=== PATIENT | male | born 1975 | race Caucasian/White ===

== ENCOUNTER → 2016-12-04 | Outpatient (CLI) | payer MEDICAID ==
--- NOTE | 2016-12-04 12:28 | XR ---
EXAMINATION TYPE: XR wrist complete LT DATE OF EXAM: 12/04/2016 COMPARISON: NONE HISTORY: Pain TECHNIQUE: Four views submitted. FINDINGS: The osseous structures are intact. The joint spaces are preserved and there is no acute fracture or dislocation. Corticated density along the base of the fifth metacarpal suggest remote trauma. IMPRESSION: 1. No definite acute fracture or dislocation if symptoms persist, follow-up study in 7 to 10 days wo uld be suggested
== END ==
LOC: RADXRMAIN 12:05
PROVIDERS: ATTEND Family Medicine
DX: M25.532 Pain in left wrist (principal)

== ENCOUNTER → 2016-12-19 | Outpatient (CLI) | payer MEDICAID ==
--- NOTE | 2016-12-19 23:15 | MR ---
EXAMINATION TYPE: MR wrist LT wo con DATE OF EXAM: 12/19/2016 COMPARISON: NONE HISTORY: Pain in left wrist Standard multiplanar, multisequence MRI departmental protocol Multiplanar, multisequence images of the left wrist were acquired. FINDINGS: There is a 5 mm cystic fluid collection lateral to the scaphoid bone. The flexor and extens or tendons of the wrist appear intact. The carpal bones are intact. There is no evidence of a fractur e line. Proximal metacarpals are intact. Triangular cartilage appears intact. There is mild increased signal on the T2 images involving the distal radial metaphysis on the lateral aspect. IMPRESSION: There is evidence of some edema in the distal radius consistent with bone bruise. No fracture line se en. Small cystic fluid collection consistent with synovial cyst or ganglion cyst lateral to the radio carpal joint.
== END | disposition home or self-care (01) ==
LOC: RADMRIMAIN 19:46
PROVIDERS: ATTEND Family Medicine
DX: M25.432 Effusion, left wrist (principal)

== ENCOUNTER → 2017-07-23 | Outpatient (CLI) | payer MEDICAID ==
[2017-07-23 14:40] LABS: T4, Free (Free Thyroxine) 1.09 ng/dL (0.78-2.19)
== END | disposition home or self-care (01) ==
LOC: LABWHC1 11:39
PROVIDERS: ATTEND Family Medicine
DX: Z00.00 Encounter for general adult medical examination without abnormal findings (principal); M65.839 Other synovitis and tenosynovitis, unspecified forearm
CPT/HCPCS: 36415; 80061; 82947; 84439; 84443

== ENCOUNTER → 2019-01-21 | Outpatient (CLI) | payer OTHER ==
--- NOTE | 2019-01-21 14:31 | ECHOF ---
Referral Reason:Bradycardia R00.1 MEASUREMENTS -------- HEIGHT: 177.8 cm WEIGHT: 81.6 kg BP: 136/51 RVIDd: 3.0 cm (< 3.3) IVSd: 1.3 cm (0.6 - 1.1) LVIDd: 3.9 cm (3.9 - 5.3) LVPWd: 1.3 cm (0.6 - 1.1) IVSs: 2.0 cm LVIDs: 3.0 cm LVPWs: 1.7 cm LA Diam: 3.9 cm (2.7 - 3.8) LAESV Index (A-L): 27.00 ml/m Ao Diam: 2.6 cm (2.0 - 3.7) AV Cusp: 1.9 cm (1.5 - 2.6) MV EXCURSION: 19.783 mm (> 18.000) MV EF SLOPE: 120 mm/s (70 - 150) EPSS: 1.1 cm MV E Madan: 1.26 m/s MV DecT: 198 ms MV A Madan: 0.59 m/s MV E/A Ratio: 2.15 RAP: 5.00 mmHg RVSP: 30.01 mmHg TAPSE: 28.44 mm FINDINGS -------- Sinus rhythm. This was a technically good study. The left ventricular size is normal. There is mild concentric left ventricular hypertrophy. Overa ll left ventricular systolic function is normal with, an EF between 60 - 65 %. The diastolic fillin g pattern is normal for the age of the patient 10.12. The right ventricle is normal in size. Normal LA size by volume 22+/-6 ml/m2. The right atrium is normal in size. Interatrial and interventricular septum intact. The aortic valve is trileaflet and appears structurally normal. The mitral valve is normal. Mild tricuspid regurgitation present. Right ventricular systolic pressure is normal at < 35 mmHg. The aortic root size is normal. Normal inferior vena cava with normal inspiratory collapse consistent with estimated right atrial pre ssure of 5 mmHg. There is no pericardial effusion. CONCLUSIONS -------- 1. Sinus rhythm. 2. This was a technically good study. 3. The left ventricular size is normal. 4. There is mild concentric left ventricular hypertrophy. 5. Overall left ventricular systolic function is normal with, an EF between 60 - 65 %. 6. The diastolic filling pattern is normal for the age of the patient 10.12 7. The right ventricle is normal in size. 8. Normal LA size by volume 22+/-6 ml/m2. 9. The right atrium is normal in size. 10. Interatrial and interventricular septum intact. 11. The aortic valve is trileaflet and appears structurally normal. 12. The mitral valve is normal. 13. Mild tricuspid regurgitation present. 14. Right ventricular systolic pressure is normal at < 35 mmHg. 15. The aortic root size is normal. 16. Normal inferior vena cava with normal inspiratory collapse consistent with estimated right atrial pressure of 5 mmHg. 17. There is no pericardial effusion. DIGITAL ADVERTISING SPECIALIST: Damaris Dc RDCS
--- NOTE | 2019-01-21 15:04 | EST ---
EXERCISE STRESS AGE: 43 SEX: M HT: 70" WT: 180 PROTOCOL: Tab Stress Test STAGE: 5 DURATION OF EXERCISE: 13:15 HEART RATE REST: 47 BLOOD PRESSURE REST: 128/70 MAXIMUM HEART RATE ACHIEVED: 151 MAXIMUM BLOOD PRESSURE: 179/63 85% MPHR: 151 100% MPHR: 178 METS: 13.7 INDICATIONS: Bradycardia CLINICAL INFORMATION: Baseline EKG revealed normal sinus rhythm without significant ST changes. Patient walked for 13 minutes 15 seconds on standard Tab protocol. Achieved a maximal heart rate of 151 beats per minute. Developed fatigue, shortness of breath but did not have any angina or arrhythmia. EKG did not reveal any ST-segment changes to indicate ischemia. By EKG criteria, this is a negative stress test with excellent exercise capacity. MMODL / IJN: [id number] /
== END | disposition home or self-care (01) ==
LOC: RADNMMAIN 08:33
PROVIDERS: ATTEND Family Medicine
DX: I07.1 Rheumatic tricuspid insufficiency (principal); R00.1 Bradycardia, unspecified
CPT/HCPCS: 93017; 93306

== ENCOUNTER → 2019-05-05 | Outpatient (CLI) | payer BC ==
--- NOTE | 2019-05-06 03:24 | CONS ---
CONSULTATION REASON FOR EVALUATION: Sleep apnea. 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 He is having issues with bradycardia. This is a long lasting problem that the patient has had for many years. However, recently has become symptomatic and Holter monitor was done by Dr. Sanchez showed that the patient's heart rate was as low as 22 beats per minute at night time and he has 4 second pause and for that reason he was referred to me. I note that the patient was evaluated at the [facility] back in 2008 and at that time he was given the diagnosis of mild obstructive sleep apnea. I had the chance to review the sleep study. The patient back then showed 31 central apneas, 14 obstructive hypopneas, 20 obstructive apneas, and his overall apnea-hypopnea index was 4.8. He was given CPAP therapy at the pressure of 7 cm of water. I also noted that the patient's heart rate on average during sleep was 53, minimum heart rate was 49, maximum heart rate was 91. He used the CPAP machine at the pressure of 7 cm of water for 1-1/2 years. Following that, the patient lost a considerable amount of weight and he ended up quitting the treatment. He was sent over by a his motion picture photographer for reevaluation. He is not snoring. He is not having any major hypersomnia or sleepiness during the day. He is going to bed around 2100 and waking up at 0430 am. Averaging around 7-8 hours of sleep per night. No syncope. PAST MEDICAL HISTORY: Chronic sinus bradycardia. SURGICAL HISTORY: Includes right knee meniscal repair and right ankle ligament repair with removal of a bone chip. DRUG ALLERGIES: None. SOCIAL HISTORY: Ex-smoker. No history of alcohol. No history of IV drugs. FAMILY HISTORY: Positive for COPD in the father. Mother is alive with multiple medical problems. Father of complications of COPD. REVIEW OF SYSTEMS: Fourteen-point review of system was done. Negative other than as mentioned above in history of present illness. He has no excessive tiredness or sleepiness. He has not been told to quit breathing recently. No choking or gasping for air. No nocturia. No grinding of the teeth. No sleepwalking. No dry mouth. No anxiety or panic attacks. No heartburn. No sweating. No anxiety. No claustrophobia. No depression. PHYSICAL EXAMINATION: BP is 131/70, pulse 48, respirations 12 temperature 98.1, saturation is 98% on room air. Height is 5 feet 9 inches, weight is 178. [place] score is 11. BMI is 25.7. GENERAL: Appears calm, comfortable. HEAD: Atraumatic, normocephalic. NECK: Enlarged uvula. He has Mallampati class IV. There is no goiter or neck mass. LUNGS: Clear to auscultation. HEART: Heart sounds are regular rate and rhythm. Normal S1, S2. No S3, S4. No murmurs. ABDOMEN: Soft, nontender. No organomegaly. EXTREMITIES: No edema, cyanosis or clubbing. IMPRESSION: Sinus bradycardia with nocturnal drop in the heart rate down to 22 beats per minutes. Very unlikely to be related to obstructive sleep apnea knowing that the patient is having sinus bradycardia even when he is awake. I reviewed his old sleep study from 2008 and back then the patient had an AHI of 4.8. He was treated with CPAP. He quit the treatment after he lost significant amount of weight. His current BMI is 25.7. No snoring. No witnessed apneas. PLAN: I am going to repeat the home sleep study. I noted that the patient's original sleep study that was done in 2003 showed mixed obstructive and central events yet overall apnea-hypopnea index was 4.8. Obtain a home sleep study to rule out any possibility of significant sleep breathing disorder and decide if treatment is needed. Very unlikely that his bradycardia is related to sleep breathing disorder based on the reported information. RENAY / IJN: [id number] /
== END | disposition home or self-care (01) ==
LOC: SLEEP 15:38
PROVIDERS: ATTEND Internal Medicine Critical Care Medicine
DX: R00.1 Bradycardia, unspecified (principal); Z87.891 Personal history of nicotine dependence; Z83.6 Family history of other diseases of the respiratory system
CPT/HCPCS: 99211

== ENCOUNTER → 2019-08-31 | Outpatient (CLI) | payer BC ==
[2019-08-31 12:13] LABS: Appearance,Urine Clear (Clear); Bilirubin,Urine Negative (Negative); Blood,Urine Negative (Negative); Color,Urine Light Yellow; Glucose,Urine (UA) Negative (Negative); Ketones,Urine Negative (Negative); Leukocyte Esterase,Urine Negative (Negative); Nitrite,Urine Negative (Negative); Protein,Urine Negative (Negative); Specific Gravity,Urine 1.006 (1.001-1.035); Urobilinogen,Urine <2.0 mg/dL (<2.0)
[2019-08-31 12:21] LABS: Basophils % (A) 0 %; Eosinophils # (A) 0.1 k/uL (0-0.7); Eosinophils % (A) 1 %; HCT 44.2 % (39.0-53.0); HGB 14.5 gm/dL (13.0-17.5); Lymphocytes # (A) 1.8 k/uL (1.0-4.8); Lymphocytes % (A) 22 %; MCH 32.2 pg (25.0-35.0); MCHC 32.8 g/dL (31.0-37.0); MCV 98.4 fL (80.0-100.0); Mean Platelet Volume 7.3; Monocytes # (A) 0.4 k/uL (0-1.0); Monocytes % (A) 4 %; Neutrophils # (A) 5.9 k/uL (1.3-7.7); Neutrophils % (A) 71 %; Platelet Count 342 k/uL (150-450); RBC 4.49 m/uL (4.30-5.90); RDW 12.7 % (11.5-15.5); WBC 8.3 k/uL (3.8-10.6)
[2019-08-31 20:37] LABS: African American GFR (CKD) 142.7 (60.0-200.0); Albumin 4.6 g/dL (3.80-4.90); Anion Gap 8.6 mmol/L (4.00-12.00); BUN/Creat Ratio 26.67 Ratio (12.00-20.00); Carbon Dioxide 27.4 mmol/L (21.6-31.8); Globulin 2.3 g/dL (1.6-3.3); Non-African American GFR(CKD) 123.1 (60.0-200.0); Potassium 4.5 mmol/L (3.5-5.5); Total Bilirubin 0.6 mg/dL (0.2-1.2); Total Protein 6.9 g/dL (6.2-8.2)
== END | disposition home or self-care (01) ==
LOC: LABWHC1 10:37
PROVIDERS: ATTEND Nurse Practitioner Family
DX: R10.32 Left lower quadrant pain (principal); R10.2 Pelvic and perineal pain
CPT/HCPCS: 36415; 80053; 81003; 82150; 83690; 84153; 85025

== ENCOUNTER → 2019-10-01 | Outpatient (CLI) | payer BC ==
--- NOTE | 2019-10-02 08:35 | US ---
EXAMINATION TYPE: US abdomen complete DATE OF EXAM: 10/01/2019 COMPARISON: NONE CLINICAL HISTORY: R10.9 unspecified abdominal pain. General abd pain EXAM MEASUREMENTS: Liver Length: 14.0 cm Gallbladder Wall: 0.2 cm CBD: 0.3 cm Spleen: 12.2 cm Right Kidney: 12.3 x 6.1 x 4.2 cm Left Kidney: 14.0 x 5.4 x 4.9 cm Pancreas: wnl Liver: wnl Gallbladder: wnl Evidence for sonographic Brooks's sign: no CBD: wnl Spleen: wnl Right Kidney: wnl Left Kidney: wnl Upper IVC: wnl Abd Aorta: wnl IMPRESSION: 1. Normal abdomen
== END | disposition home or self-care (01) ==
LOC: RADUSWWP 16:05
PROVIDERS: ATTEND Family Medicine
DX: R10.9 Unspecified abdominal pain (principal)
CPT/HCPCS: 76700

== ENCOUNTER → 2019-11-05 | Outpatient (CLI) | payer BC ==
--- NOTE | 2019-11-05 13:26 | US ---
EXAMINATION TYPE: US venous doppler duplex LE DATE OF EXAM: 11/05/2019 1:11 PM COMPARISON: NONE CLINICAL HISTORY: M79.604 pain right leg, M79.605 pain left leg. Bilateral leg pain SIDE PERFORMED: Bilateral TECHNIQUE: The lower extremity deep venous system is examined utilizing real time linear array sonog brittany with graded compression, doppler sonography and color-flow sonography. VESSELS IMAGED: External Iliac Vein (EIV) Common Femoral Vein Deep Femoral Vein Greater Saphenous Vein * Femoral Vein Popliteal Vein Small Saphenous Vein * Proximal Calf Veins (* superficial vessels) Right Leg: Appears negative for DVT Left Leg: Appears negative for DVT IMPRESSION: Grayscale, color doppler, spectral doppler imaging performed of the deep veins of the lo wer extremities. There is normal flow, compressibility, vascular waveforms.
== END | disposition home or self-care (01) ==
LOC: RADUSWWP 12:07
PROVIDERS: ATTEND Family Medicine
DX: M79.604 Pain in right leg (principal); M79.605 Pain in left leg
CPT/HCPCS: 93922; 93923; 93970

== ENCOUNTER → 2021-10-12 | Outpatient (CLI) | payer MEDICAID ==
[2021-10-12 15:02] LABS: Chol/HDL Ratio 1.78 Ratio; LDL Cholesterol,Direct Reflex 77.8 mg/dL (0.00-129.00)
== END | disposition home or self-care (01) ==
LOC: LABWHC1 09:06
PROVIDERS: ATTEND Family Medicine
DX: Z00.00 Encounter for general adult medical examination without abnormal findings (principal)
CPT/HCPCS: 36415; 80061; 82947; 83721

== ENCOUNTER 2022-07-27 08:46 | Emergency (ER) | payer MEDICAID ==
--- NOTE | 2022-07-27 09:10 | ED ---
General Adult HPI - General Chief complaint: Extremity Injury, Lower Stated complaint: Recheck Time Seen by Provider: 07/27/22 08:59 Source: patient, RN notes reviewed Mode of arrival: ambulatory Limitations: no limitations - History of Present Illness Initial comments: Patient is a pleasant 46-year-old male presenting to the emergency department concern for left knee pain. Onset of symptoms was last night while at [facility]. Patient was being held. Patient turned but his left lower leg did not. Patient did have varus strain. Patient is able to ambulate however has some discomfort with pushing off to walk. Patient has mild swelling. No weakness. No history of similar problems previously. - Related Data Allergies Allergy/AdvReac Type Severity Reaction Status Date / Time Penicillins Allergy Unknown Verified 07/27/22 08:54 Review of Systems ROS Statement: Those systems with pertinent positive or pertinent negative responses have been documented in the HPI. ROS Other: All systems not noted in ROS Statement are negative. Constitutional: Denies: fever Eyes: Denies: eye pain ENT: Denies: ear pain Respiratory: Denies: cough Cardiovascular: Denies: chest pain Endocrine: Denies: fatigue Gastrointestinal: Denies: abdominal pain Genitourinary: Denies: dysuria Musculoskeletal: Reports: as per HPI Skin: Denies: rash Neurological: Denies: weakness Past Medical History Past Medical History: No Reported History History of Any Multi-Drug Resistant Organisms: None Reported Additional Past Surgical History / Comment(s): R miniscus repair 2005, R ankle reconstruction 1992 Past Psychological History: Anxiety, Depression Smoking Status: Former smoker Past Alcohol Use History: None Reported Past Drug Use History: None Reported General Exam Limitations: no limitations General appearance: alert, in no apparent distress Head exam: Present: atraumatic Respiratory exam: Present: normal lung sounds bilaterally Cardiovascular Exam: Present: regular rate, normal rhythm Expanded Peripheral pulses: 2+: Posterior Tibialis (L), Dorsalis Pedis (L) GI/Abdominal exam: Present: soft. Absent: tenderness Extremities exam: Present: tenderness (Animal tenderness left medial knee. Discomfort with varus stress. Trace swelling. Distally the extremity is neurovascular intact.), normal capillary refill Neurological exam: Present: alert. Absent: motor sensory deficit Psychiatric exam: Present: normal affect, normal mood Skin exam: Present: normal color Course Vital Signs 07/27/22 08:54 Temperature 98.1 F Pulse Rate 51 L Respiratory 18 Rate Blood Pressure 131/79 O2 Sat by Pulse 97 Oximetry Medical Decision Making - Medical Decision Making Was pt. sent in by a medical professional or institution (HARINI Arreola, [facility], urgent care, hospital, or [facility]...) When possible be specific @ -No Did you speak to anyone other than the patient for history (EMS, parent, family, police, friend...)? What history was obtained from this source @ -No Did you review nursing and triage notes (agree or disagree)? Why? @ -I reviewed and agree with nursing and triage notes Were old charts reviewed (outside hosp., previous admission, EMS record, old EKG, old radiological studies, urgent care reports/EKG's, [facility] records)? Report findings @ -No old charts were reviewed Differential Diagnosis (chest pain, altered mental status, abdominal pain women, abdominal pain men, vaginal bleeding, weakness, fever, dyspnea, syncope, headache, dizziness, GI bleed, back pain, seizure, CVA, palpatations, mental health)? @ -not applicable EKG interpreted by me (3pts min.). @ -As above X-rays interpreted by me (1pt min.). @ -Left knee x-ray shows small effusion otherwise no acute abnormality CT interpreted by me (1pt min.). @ -None done U/S interpreted by me (1pt. min.). @ -None done What testing was considered but not performed or refused? (CT, X-rays, U/S, labs)? Why? @ -None What meds were considered but not given or refused? Why? @ -Discussed anti-inflammatories however patient does not want and states he has his own Did you discuss the management of the patient with other professionals (professionals i.e. HARINI Arreola, [facility], lab, RT, psych nurse, social sciences lecturer, territory sales executive, teacher, preventive medicine officer, piano case and bench assembler)? Give summary @ -No Was smoking cessation discussed for >3mins.? @ -No Was critical care preformed (if so, how long)? @ -No Were there social determinants of health that impacted care today? How? (Ho melessness, low income, unemployed, alcoholism, drug addiction, transportation, low edu. Level, literacy, decrease access to med. care, usp, rehab)? @ -No Was there de-escalation of care discussed even if they declined (Discuss DNR or withdrawal of care, Hospice)? DNR status @ -No What co-morbidities impacted this encounter? (DM, HTN, Smoking, COPD, CAD, Cancer, CVA, ARF, Chemo, Hep., AIDS, mental health diagnosis, sleep apnea, morbid obesity)? @ -None Was patient admitted / discharged? Hospital course, mention meds given and route, prescriptions, significant lab abnormalities, going to OR and other pertinent info. @ -Patient will be discharged. Patient is updated on concern for possible medial collateral ligament injury and is recommended orthopedic follow-up in no exertion other than walking until that time. Undiagnosed new problem with uncertain prognosis? @ -The injury with out fully diagnosed medial collateral ligament injury, possible sprain versus partial tear versus complete tear Drug Therapy requiring intensive monitoring for toxicity (Heparin, Nitro, Insulin, Cardizem)? @ -No Were any procedures done? @ -No Diagnosis/symptom? @ -Medial collateral ligament injury Acute, or Chronic, or Acute on Chronic? @ -Acute Uncomplicated (without systemic symptoms) or Complicated (systemic symptoms)? @ -default Side effects of treatment? @ -No Exacerbation, Progression, or Severe Exacerbation? @ -No Poses a threat to life or bodily function? How? (Chest pain, [place], [place], pneumonia, PE, COPD, DKA, ARF, appy, cholecystitis, CVA, Diverticulitis, Homicidal, Suicidal, threat to staff... and all critical care pts) @ -No Disposition Clinical Impression: Injury of medial collateral ligament (MCL) of knee Disposition: HOME SELF-CARE Condition: Stable Instructions (If sedation given, give patient instructions): Knee Sprain (ED), Knee Pain (ED) Additional Instructions: Please do follow-up with primary care physician in the next couple days for recheck. [id number] Motrin as needed. Ice to affected area. Use knee brace. Please follow-up with orthopedics for further evaluation, number provided. Return for increased pain, weakness, worsening or change in symptoms or other concerns. No strenuous exercise other than walking until released by orthopedics Is patient prescribed a controlled substance at d/c from ED?: No Referrals: Bola Lawrence DO [Primary Care Provider] - 1-2 days Carlos Chou DO [Doctor of Osteopathic Medicine] - 1-2 days Time of Disposition: 10:04
--- NOTE | 2022-07-27 09:44 | XR ---
EXAMINATION TYPE: XR knee complete LT DATE OF EXAM: 07/27/2022 9:26 AM INDICATION: Patient age:Male; 46 years old; Reason for study: trauma; PHH. COMPARISON: None. TECHNIQUE: The Left knee(s) was examined in 3 projections. Frontal, lateral and oblique. FINDINGS: No acute fracture or dislocation. Inferior and superior patellar spurring noted. Small conley prapatellar joint effusion. Mild soft tissue edema of the anterior knee. IMPRESSION: 1. No acute osseous pathology. 2. Small suprapatellar joint effusion and mild anterior knee soft tissue edema.
[2022-07-27 10:34] VITALS: BP 131/68; PULSE 61; RESP 16; TEMP 98
== END 2022-07-27 10:34 | disposition home or self-care (01) ==
LOC: EC 08:46
DX: S89.92XA Unspecified injury of left lower leg, initial encounter (principal); Z88.0 Allergy status to penicillin; Z87.891 Personal history of nicotine dependence; X58.XXXA Exposure to other specified factors, initial encounter
CPT/HCPCS: 99283 ×2; 73562; L1830

== ENCOUNTER → 2022-08-01 | Outpatient (CLI) | payer MEDICAID ==
--- NOTE | 2022-08-01 17:52 | MR ---
EXAMINATION TYPE: MR knee LT wo con DATE OF EXAM: 08/01/2022 COMPARISON: Outside left knee x-ray earlier today HISTORY: Left knee pain medial side, swelling since injury 6 days earlier TECHNIQUE: Multiplanar, multisequence images of the knee is performed without IV contrast. FINDINGS: MEDIAL MENISCUS: Anterior and posterior horns are intact without tear. LATERAL MENISCUS: Anterior and posterior horns are intact without tear. CRUCIATE LIGAMENTS: The anterior and posterior cruciate ligaments are intact and unremarkable. COLLATERAL LIGAMENTS: The medial collateral ligament and lateral collateral ligament complex are inta ct. [id number] fluid signal surrounds medial collateral ligament greatest over the proximal fib ers. EXTENSOR MECHANISM: Visualized quadriceps and patellar tendons are intact. EFFUSION: Small sized suprapatellar joint effusion. POPLITEAL CYST: Small size popliteal/butler cyst measures 4.2 cm sagittal image 28. TRICOMPARTMENT SPACES: Moderate narrowing and spurring patellofemoral compartment. Well-defined 6 mm ossific fragment without abnormal edema from the inferior patella sagittal image 13 correlates with p daren films CARTILAGE: Tricompartment articular cartilage is preserved. BONE MARROW SIGNAL: No focal abnormal marrow signal is appreciated. OTHER: No additional significant abnormality is appreciated. IMPRESSION: 1. [id number] MCL sprain injury. No meniscal or ligamentous tear is seen. 2. Fairly moderate patellofemoral joint arthropathy as detailed above. 3. Small popliteal cyst.
== END | disposition home or self-care (01) ==
LOC: RADMRIMAIN 17:03
PROVIDERS: ATTEND Orthopaedic Surgery
DX: S83.412A Sprain of medial collateral ligament of left knee, initial encounter (principal); M71.22 Synovial cyst of popliteal space [Baker], left knee

== ENCOUNTER → 2024-10-01 | Outpatient (CLI) | payer MEDICAID ==
[2024-10-01 15:17] LABS: Basophils # (A) 0.03 X 10*3/uL (0.00-0.10); Basophils % (A) 0.3 %; Eosinophils # (A) 0.06 X 10*3/uL (0.04-0.35); Eosinophils % (A) 0.7 %; HCT 46.5 % (39.6-50.0); HGB 15.2 g/dL (13.0-17.0); Immature Grans, Automated 0.30 %; Lymphocytes # (A) 2.06 X 10*3/uL (0.90-5.00); Lymphocytes % (A) 22.5 %; MCH 30.2 pg (27.0-32.0); MCHC 32.7 g/dL (32.0-37.0); MCV 92.3 FL (80.0-97.0); Monocytes # (A) 0.77 X 10*3/uL (0.20-1.00); Monocytes % (A) 8.4 %; NRBC Per 100 WBC 0 X 10*3/uL (0.00-0.01); Neutrophils # (A) 6.20 X 10*3/uL (1.80-7.70); Neutrophils % (A) 67.8 %; Platelet Count 377 X 10*3/uL (140-440); RBC 5.04 X 10*6/uL (4.40-5.60); RDW 13.2 % (11.5-14.5); WBC 9.15 X 10*3/uL (4.50-10.00)
[2024-10-01 15:35] LABS: Anion Gap 10.20 mmol/L (4.00-12.00); BUN/Creat Ratio 22.11 Ratio (12.00-20.00); Blood Urea Nitrogen 19.9 mg/dL (9.0-27.0); Carbon Dioxide 25.8 mmol/L (21.6-31.8); Chloride 96 mmol/L (96-109); Cholesterol 178.00 mg/dL (0.00-200.00); Glucose 89 mg/dL (70-110); HDL Cholesterol 95.00 mg/dL (40.00-60.00); LDL Cholesterol,Calculated 75.8 mg/dL (0.0-131.0); Magnesium 2.3 mg/dL (1.5-2.4); Potassium 4.7 mmol/L (3.5-5.5); Sodium 132 mmol/L (135-145); Triglycerides 35.90 mg/dL (0.00-149.00); VLDL Calculation 7.18 mg/dL (5.00-40.00)
[2024-10-01 15:36] LABS: ALT 28 U/L (10-49); AST 28 U/L (14-35); Albumin 4.8 g/dL (3.8-4.9); Albumin/Globulin Ratio 1.78 Ratio (1.60-3.17); Alkaline Phosphatase 62 U/L (41-126); Calcium 9.8 mg/dL (8.7-10.3); Globulin 2.7 g/dL (1.6-3.3); Prostate Specific Antigen 1.11 ng/mL (0.000-2.500); T4, Free (Free Thyroxine) 1.46 ng/dL (0.80-1.80); Total Protein 7.5 g/dL (6.2-8.2)
== END | disposition home or self-care (01) ==
LOC: LABWHC1 09:32
PROVIDERS: ATTEND Family Medicine
DX: Z00.00 Encounter for general adult medical examination without abnormal findings (principal); Z12.5 Encounter for screening for malignant neoplasm of prostate; R00.1 Bradycardia, unspecified
CPT/HCPCS: 36415; 80053; 80061; 83036; 83735; 84153; 84439; 84443; 84481; 85025